=== PATIENT | female | born 1960 | race Caucasian/White ===

== ENCOUNTER 2023-08-23 18:44 | Emergency (ER) | payer MEDICAID ==
[2023-08-23 19:15] LABS: BASOPHILS ABSOLUTE AUTO 0.03 K/uL (0.00-0.20); BASOPHILS PERCENT AUTO 0.2 % (0.0-1.0); HEMATOCRIT 50.9 % (37.0-47.0); IMMATURE GRAN ABSOLUTE AUTO 0.05 K/uL (0.00-0.05); IMMATURE GRAN PERCENT AUTO 0.4 % (0.0-0.4); MEAN CORPUSCULAR HEMOGLOBIN 24.8 pg (28.0-32.0); MEAN CORPUSCULAR HGB CONC 31.4 g/dL (32.0-36.0); MEAN CORPUSCULAR VOLUME 78.9 fL (83.0-99.0); MONOCYTES ABSOLUTE AUTO 0.49 K/uL (0.00-0.80); MONOCYTES PERCENT AUTO 3.5 % (0.0-8.0); NEUTROPHILS ABSOLUTE AUTO 12.69 K/uL (1.80-7.70); NEUTROPHILS PERCENT AUTO 90.9 % (41.0-71.0); PLATELET COUNT,PLT 134 K/uL (150-400); RED BLOOD CELL COUNT 6.45 M/uL (4.10-5.30); WHITE BLOOD CELL COUNT,WBC 13.96 K/uL (3.9-11.3)
[2023-08-23] MEDS: cefTRIAXone 1 GM in Sodium Chloride 0.9% 50 ML IV ONE (19:40)
[2023-08-23] MEDS: Sodium Chloride 0.9% 2.5 ML Syringe FLUSH PRN (19:40)
[2023-08-23] MEDS: methylPREDNISolone Sodium Succinate 125 MG/2 ML SDV IVPUSH ONE (19:40)
[2023-08-23] MEDS: Albuterol/Ipratropium 3.0-0.5 MG/3 ML Neb Soln NEB ONE (19:40)
[2023-08-23] MEDS: Sodium Chloride 0.9% 10 ML Syringe FLUSH PRN (19:40)
[2023-08-23 19:50] LABS: BASE EXCESS VENOUS 7.7 (-2.0-3.0); PH,VENOUS 7.39 (7.31-7.41)
[2023-08-23 19:59] LABS: CORONAVIRUS COVID-19 NAA NEGATIVE (NEGATIVE); INFLUENZA A NAA NEGATIVE (NEGATIVE); INFLUENZA B NAA POSITIVE (NEGATIVE); RESPIRATORY SYNCYTIAL VIR NAA NEGATIVE (NEGATIVE)
[2023-08-23 20:03] LABS: A/G RATIO 0.7 (0.9-1.6); ALANINE AMINOTRANSFERASE,ALT 17 IU/L (14-63); ALBUMIN 3.1 g/dL (3.4-5.0); ALKALINE PHOSPHATASE 117 U/L (46-116); ASPARTATE AMNIOTRANSFERASE,AST 50 IU/L (15-37); BILIRUBIN TOTAL 1.2 mg/dL (0.2-1.0); BLOOD UREA NITROGEN,BUN 28 mg/dL (7.0-18.0); CALCIUM 9.5 mg/dL (8.5-10.1); CARBON DIOXIDE,CO2 34.9 mmol/L (21.0-32.0); CHLORIDE,CL 102 mmol/L (98-107); CREATININE 1.2 mg/dL (0.6-1.0); EST CRCL DRUG DOSING (CG) 42.51 mL/min; GLUCOSE RANDOM 138 mg/dL (74-106); LIPASE 30 U/L (16-77); POTASSIUM,K 3.1 mmol/L (3.5-5.1); PROTEIN TOTAL,TP 7.6 g/dL (6.4-8.2); SODIUM,NA 147 mmol/L (136-145); TSH ULTRASENSITIVE 0.57 uIU/mL (0.36-3.74)
[2023-08-23 20:06] LABS: ESTIMATED GFR 52 mL/min (>60); ETHANOL BLOOD MEDICAL < 3.0 mg/dL
[2023-08-23 20:36] LABS: INR 1.12 (0.86-1.11)
[2023-08-23 20:45] LABS: LACTIC ACID 1.2 mmol/L (0.4-2.0)
[2023-08-23 20:55] LABS: APPEARANCE,URINE SLT CLOUDY; BILIRUBIN,URINE NEGATIVE (NEGATIVE); COLOR,URINE OTHER; GLUCOSE,URINE NEGATIVE (NEGATIVE); KETONES,URINE NEGATIVE (NEGATIVE); LEUKOCYTE ESTERASE,URINE NEGATIVE (NEGATIVE); NITRITE,URINE NEGATIVE (NEGATIVE); OCCULT BLOOD,URINE NEGATIVE (NEGATIVE); PROTEIN,URINE NEGATIVE (NEGATIVE); UROBILINOGEN,URINE 0.2 EU/dL (<2.0)
[2023-08-23 21:05] LABS: AMPHETAMINES SCREEN, URINE NEGATIVE (CUTOFF=500); BARBITURATE SCREEN,URINE NEGATIVE (CUTOFF=200); BENZODIAZEPINES SCREEN,URINE NEGATIVE (CUTOFF=150); BUPRENORPHINE SCREEN,URINE NEGATIVE (CUTOFF=10); METHADONE SCREEN, URINE NEGATIVE (CUTOFF=200); METHAMPHETAMINES SCREEN, URINE NEGATIVE (CUTOFF=500); OXYCODONE SCREEN,URINE NEGATIVE (CUT0FF=100); PCP SCREEN,URINE NEGATIVE (CUTOFF=25); THC SCREEN,URINE 20 NG/ML NEGATIVE (CUTOFF=50)
[2023-08-23] MEDS: Oseltamivir 75 MG Cap PO ONE (21:37)
[2023-08-23] MEDS: Potassium Chloride 20 MEQ in Premix Bag 1 BAG IV ONE (21:41)
[2023-08-23 23:13] LABS: BASE EXCESS VENOUS 7.4 (-2.0-3.0); PH,VENOUS 7.36 (7.31-7.41)
== END 2023-08-23 23:36 ==
LOC: MW.ED 18:44
DX: J96.92 Respiratory failure, unspecified with hypercapnia (principal); J44.1 Chronic obstructive pulmonary disease with (acute) exacerbation; J10.1 Influenza due to other identified influenza virus with other respiratory manifestations; E11.9 Type 2 diabetes mellitus without complications; F17.210 Nicotine dependence, cigarettes, uncomplicated; Z90.49 Acquired absence of other specified parts of digestive tract; Z90.710 Acquired absence of both cervix and uterus; Z79.899 Other long term (current) drug therapy; Z79.82 Long term (current) use of aspirin
CPT/HCPCS: 0241U; 36415; 51702; 70450; 71045; 80053; 80305; 80307; 81003; 82140; 82803; 83605; 83690; 83880; 84443; 84484; 85025; 85610; 87040; 93005; 96365; 96366; 96367; 96375; 99285; J0696; J2930; J3480; J3490; 93010; 99291; J7620-GY